=== PATIENT | female | born 1980 | race Caucasian/White ===

== ENCOUNTER 2016-07-27 12:11 | Inpatient (IN) | payer BC ==
[2016-07-27] MEDS ORDERED: LR 1,000 ML IV PRN (12:35)
[2016-07-27] MEDS ORDERED: EPSOM SALT 454 GM TP PRN (12:35)
[2016-07-27] MEDS ORDERED: TERBUTALINE SULFATE 1 MG/ML VIAL IV PRN (12:35)
[2016-07-27] MEDS ORDERED: LIDOCAINE 1% 30 ML SDV SC PRN (12:35)
[2016-07-27] MEDS ORDERED: MINERAL OIL 60 ML OIL TP PRN (12:35)
[2016-07-27] MEDS ORDERED: OXYTOCIN/RINGERS LACTATE 1,000 ML IV PRN (12:35)
[2016-07-27 13:05] LABS: % IMMATURE GRANULYOCYTES 0.4 % (0.0-1.1); ABSOLUTE IMMATURE GRANULOCYTES 0.03 10^3/uL (0.00-0.10); ADD DIFF? NO; ADD MORPH? NO; ADD SCAN? NO; ATYPICAL LYMPHOCYTE FLAG 0 (0-99); FRAGMENT RBC FLAG 0 (0-99); HEMATOCRIT 38.2 % (38.0-47.0); HEMOGLOBIN 13.5 g/dL (12.6-16.3); LEFT SHIFT FLG 0 (0-99); LIPEMIA HEMOLYSIS FLAG 90 (0-99); MEAN CELL HEMOGLOBIN CONCENTR. 35.3 g/dL (32.4-36.7); MEAN CELL VOLUME 87.6 fL (81.5-99.8); MEAN PLATELET VOLUME 9.9 fL (8.7-11.7); PLATELET CLUMPS FLAG 0 (0-99); PLATELET COUNT 287 10^3/uL (150-400); RED BLOOD CELL COUNT 4.36 10^6/uL (4.18-5.33); RED CELL DISTRIBUTION WIDTH 12.3 % (11.5-15.2)
[2016-07-27] MEDS ORDERED: fentaNYL 2MCG/ML/BUP 0.1% RTU 100 ML BAG EP ONE (13:18)
[2016-07-27] MEDS ORDERED: BUPIVACAINE 0.25% 30 ML SDV ONE (13:18)
[2016-07-27] MEDS ORDERED: PHENYLEPHRINE HCL 100 MCG/ML SYR ONE (13:19)
[2016-07-27] MEDS ORDERED: ONDANSETRON 4 MG/2 ML VIAL IVP PRN (14:40)
[2016-07-27] MEDS ORDERED: PHENYLEPHRINE HCL 100 MCG/ML SYR IVP PRN (14:40)
[2016-07-27] MEDS ORDERED: NALOXONE HCL 0.4 MG/ML INJ IVP PRN (14:40)
[2016-07-27] MEDS ORDERED: fentaNYL 2MCG/ML/BUP 0.1% RTU 100 ML EP SCH (15:00)
[2016-07-27] MEDS ORDERED: LR 500 ML IV SCH (15:00)
--- NOTE | 2016-07-27 15:57 | GHP ---
[f rep st] HISTORY AND PHYSICAL DATE OF ADMISSION: 07/27/2016 Admitted to the Obstetric Service. HISTORY UPON ADMISSION: The patient is a 36-year-old, A2, at 38 weeks and 1 day, with an estim ated due date of 08/09/2016, consistent with an 8-week ultrasound, who had spontaneous onset of contr actions in the morning on 07/27. The patient was having strong contractions infrequently, but those have built to be approximately every 4-7 minutes of strong intensity upon admission. She felt they w ere building in frequency since noon. Bag of water was intact upon admission. The patient was not h aving any bleeding. Good movement. Upon first cervical exam on admission, the patient was 5 c m dilated and requested an epidural. This has been placed without any complication, and the patient is comfortable now. care has been with [facility] since 8 weeks' gestation. Care has been uncomplicat ed. The patient had a 20-week ultrasound showing increased estimated weight at the 92nd percentile, and she had a followup ultrasound in 3rd trimester which continued to show the baby was measuring 3 w eeks ahead of schedule. Otherwise, the anatomy on ultrasound was normal. LABORATORY DATA: Include maternal blood type O positive with negative antibody screen. RPR nonreactive. Rubella immune. Hepatitis B surface antigen negative. HIV negative. Verified testin g was all normal. Thyroid function tests were normal. Urinalysis and culture were negative. Pap sm ear negative. Gonorrhea and chlamydia negative. MSAFP negative. 1-hour Glucola was normal. Hemato crit was 37%. GBS culture was negative. FAMILY MEDICAL HISTORY: Patient has a strong family history of cancer, including breast and colon ca ncer. The patient's maternal grandmother, as well as mother and sister, had all been diagnosed with breast cancer, and testing was performed that found a positive BRCA2 gene. The patient was tested an d was also positive and had prophylactic mastectomies in 2011. The patient has a history of ocular m igraines. PAST SURGICAL HISTORY: Bilateral prophylactic mastectomy with right salpingo-oophorectomy in October 19. Breast reconstruction in February 2012. D and Cs for TAB's in 2000 and 2002. PAST OBSTETRIC HISTORY: 2000 TAB. 2002 TAB. September 2013 a viable male at 6 pounds 6 ounces delivere d at 38 weeks via vaginal delivery. Marginal cord insertion but uncomplicated delivery. ALLERGIES: No known drug allergies. CURRENT MEDICATIONS: Only vitamins. SOCIAL HISTORY: The patient is and lives with her and their son. Patient has a hist ory of smoking but discontinued this in 2012. She had a 1/2 alga-uvf-ssv habit. The patient has use d nicotine lozenges 1 g a couple times a day. Patient denies any alcohol or drug use. PHYSICAL EXAMINATION: GENERAL: Upon admission, the patient is a well-developed, well-nourished whit e female in moderate distress with contractions upon arrival. VITAL SIGNS: Blood pressure in the 110s over 60s to 70s. Patient was afebrile. See nursing documen tation for full details. heart tone monitoring reveals baseline varying between the 110s and 1 20s. Category 2 tracing with occasional variable decelerations, however reassuring variability and a ccelerations noted. Contractions every 3-5 minutes. PELVIC: The cervix was dilated 8-9 cm and was 100% effaced. Zero station. Artificial rupture of me mbranes was performed and there was moderate meconium noted. EXTREMITIES: Nontender and minimal edema. ASSESSMENT: 1. Intrauterine at 38+ weeks' gestation with active labor. Meconium noted upon artificial rupture of membranes. Negative GBS culture. Comfortable now with an epidural. 2. History of BRCA2 gene and prophylactic mastectomies. The patient is planning on bottle feeding. PLAN: Expect delivery soon. Will have support due to the meconium. /[id number]/MODL
[2016-07-27] MEDS ORDERED: AMMONIA AROMATIC 1 EACH AMP IH ONE (16:03)
[2016-07-27] MEDS ORDERED: TERBUTALINE SULFATE 1 MG/ML VIAL ONE (16:04)
[2016-07-27] MEDS ORDERED: MISOPROSTOL 200 MCG TAB ONE (16:04)
[2016-07-27] MEDS ORDERED: OXYTOCIN 10 UNIT/ML VIAL ONE (16:05)
[2016-07-27] MEDS ORDERED: LIDOCAINE 1% 30 ML SDV ONE (16:05)
[2016-07-27] MEDS ORDERED: DOCUSATE SODIUM 100 MG CAP PO PRN (16:59)
[2016-07-27] MEDS ORDERED: ACETAMINOPHEN 325 MG TAB PO PRN (16:59)
--- NOTE | 2016-07-27 17:03 | OBPROC ---
- Labor and Delivery Onset of Contractions Date: 07/27/16 Onset of Contractions Time: 12:00 Onset of Contractions Type: Spontaneous Rupture of Membranes Date: 07/27/16 Rupture of Membranes Time: 14:36 Rupture of Membranes Type: Artificial Amniotic Fluid Color: Meconium Stained-Moderate Dilation Complete Time: 15:20 Delivery Type: Spontaneous Placenta Delivery Date: 07/27/16 Placenta Delivery Time: 16:29 Episiotomy/Laceration: 2nd Degree, Midline, Perineal Repair: 3-0, Vicryl EBL: 400 Complications: Nuchal Cord (x1 loose and reduced) - Medications Anesthesia: Epidural - [place] Info Infant A Delivery Date: 07/27/16 Delivery Time: 16:20 Sex of Infant: Female Score (1 Min): 8 Score (5 Min): 9
[2016-07-27] MEDS: IBUPROFEN 600 MG TAB PO PRN ×2 (17:23→23:52)
[2016-07-27] MEDS: HYDROCODONE/APAP 5/325 TAB PO PRN ×2 (18:30→23:55)
[2016-07-28] MEDS: HYDROCODONE/APAP 5/325 TAB PO PRN ×3 (04:25→14:29)
[2016-07-28] MEDS: IBUPROFEN 600 MG TAB PO PRN ×2 (06:01→12:35)
--- NOTE | 2016-07-28 07:21 | SOAPPROG ---
SOAP Progress Note Assessment/Plan: Assessment: ff@u scant rubra lochia pain well managed bottlefeeding well Plan:discharge to home with instructions. discussed pain management, ss infection, pelvic rest, bottlefeeding, depression,rest, exercise, fu, rubra management and expectations, contraception 07/28/16 07:18 Subjective: Doing well. Denies difficulties. PAin well managed. Bottlefeeding well. Objective: Laboratory Results 07/28/16 04:20 - Time Spent With Patient Time Spent With Patient: 15 minbutes - Pending Discharge Pending Discharge Within 24 Hours: Yes Pending Discharge Date: 07/28/16 Pending Discharge Time: 11:00 Physical Exam - Physical Exam General Appearance: WD/WN, alert, no apparent distress Abdomen: other (FF@u scant rubra lochia) Skin: normal color, warm/dry Extremities: normal range of motion, Radha's sign (negative bilaterally/ dtrs1+ bilaterally no clonus) Neuro/Psych: no motor/sensory deficits, alert, normal mood/affect ICD10 Worksheet Patient Problems: Problems Problem Status Diagnosed (spontaneous vaginal delivery) Acute
== END 2016-07-28 18:00 | disposition home or self-care (01) | DRG 775 ==
LOC: FLD 12:11 → OBSVTOIN 12:11 → FOB 07-28 10:47
PROVIDERS: ADMIT Obstetrics & Gynecology; ATTEND Obstetrics & Gynecology
PROC: 10E0XZZ Delivery of Products of Conception, External Approach (ICD-10-PCS; principal; 2016-07-27)
PROC: 0KQM0ZZ Repair Perineum Muscle, Open Approach (ICD-10-PCS; principal; 2016-07-27)
DX: O77.0 Labor and delivery complicated by meconium in amniotic fluid (principal); O69.9XX0 Labor and delivery complicated by cord complication, unspecified, not applicable or unspecified; O70.1 Second degree perineal laceration during delivery; Z3A.38 38 weeks gestation of pregnancy; Z37.0 Single live birth; Z80.3 Family history of malignant neoplasm of breast; Z15.01 Genetic susceptibility to malignant neoplasm of breast; Z90.13 Acquired absence of bilateral breasts and nipples; Z87.891 Personal history of nicotine dependence
CPT/HCPCS: J2370; J2590; J3105

== ENCOUNTER 2016-12-19 05:53 | Observation (INO) | payer OTHER ==
--- NOTE | 2016-12-10 16:58 | GHP ---
[f rep st] PREOP HISTORY AND PHYSICAL DATE OF ADMISSION: 12/19/2016 PLANNED SURGERY: Total laparoscopic hysterectomy with left salpingo-oophorectomy, possible bilatera l salpingectomy if the left fallopian tube is still there. INDICATIONS: BRCA2 positive. HISTORY: The patient is a 36-year-old 4, para 2-0-2-2, who is known to be BRCA2 positive. She is status post bilateral mastectomy. Her family status is now complete. She just had a vaginal delivery in July 2016 of her second child. She has been followed with Oncology. She has a stro ng family history of breast and ovarian cancer, and is noted to be BRCA2 positive and wishes to proc eed with definitive therapy for total abdominal hysterectomy with bilateral salpingo-oophorectomy to decrease her cancer risk. MEDICAL HISTORY: Significant for BRCA2 positive status, history of right ovarian cyst which she had removed, history of migraine headaches, history of depression, history of tobacco use. MEDICATIONS: Lexapro, multivitamin, vitamin D, calcium. SURGICAL HISTORY: Bilateral prophylactic mastectomy, bilateral breast reconstruction, laparoscopic right salpingo-oophorectomy for persistent ovarian cysts, history of voluntary termination of pregna ncy x2. ALLERGIES: No known drug allergies. SOCIAL HISTORY: The patient is a naqd-dk-eehd mom. She is . She lives with her and their 2 children. She has a history of tobacco use, but is not currently smoking. She denies drug use. She does drink alcohol occasionally. FAMILY MEDICAL HISTORY: Significant for multiple family members with breast cancer and BRCA2 positi ve, history of migraines, history of depression and anxiety. OBSTETRIC/GYNECOLOGIC HISTORY: Menarche age 15. Periods every 25 days lasting 5 days. She is a gr avida 4, para 2-0-2-2. In 2010, she had a voluntary termination of which was surgical. I n 2002, she had a voluntary termination of which was surgical. In September 2013, she had a s pontaneous vaginal delivery of a 6 pound, 6 ounce male after 30 hours of labor. In July 21 she had a spontaneous vaginal delivery. That was uncomplicated. The patient denies a ny history of any abnormal Pap smears or sexually transmitted diseases. The patient is having regul ar cycles. REVIEW OF SYSTEMS: A 10-point review of systems is negative. PHYSICAL EXAMINATION: VITAL SIGNS: Are stable. GENERAL APPEARANCE: She is alert and oriented x3. PSYCH: She has an appropriate affect. NECK: Mobile, supple. No thyromegaly noted. HEART: Rat e is regular. LUNGS: Are clear to auscultation bilaterally. ABDOMEN: Soft, nondistended, nontend er. No organomegaly is noted. EXTREMITIES: Reveal no calf tenderness or edema. PELVIC: Reveals a mobile, midposition uterus with no adnexal masses. IMAGING: Recent pelvic ultrasound was unremarkable. Uterus measuring 9 x 4.5 x 5 cm with a left ov bonilla present, which is unremarkable. Absent right ovary is noted. ASSESSMENT: A 36-year-old 2, para 2-0-0-2, who is BRCA2 positive status post bilateral mast ectomy. PLAN: She will proceed with a total laparoscopic hysterectomy with left salpingo-oophorectomies for BRCA2 positive status. The patient has been properly consented and we will proceed. /[id number]/MODL
[2016-12-19] MEDS ORDERED: ceFAZolin 2 GM/DEXTROSE 100 ML IV ONE (06:00)
[2016-12-19] MEDS ORDERED: LR 1,000 ML IV ONE (06:26)
[2016-12-19] MEDS ORDERED: LIDOCAINE 1% 5 ML SDV ID PRN (06:26)
[2016-12-19] MEDS ORDERED: LIDOCAINE 1% 2 ML INJ ONE (06:28)
[2016-12-19] MEDS ORDERED: PROPOFOL 200 MG/20 ML VIAL ONE (06:44)
[2016-12-19] MEDS ORDERED: fentaNYL 100 MCG/2 ML INJ ONE ×3 (06:44→10:37)
[2016-12-19] MEDS ORDERED: BUPIVACAINE 0.5% 30 ML SDV ONE (07:06)
[2016-12-19] MEDS ORDERED: MIDAZOLAM 2 MG/2 ML VIAL ONE (07:14)
[2016-12-19] MEDS ORDERED: ONDANSETRON 4 MG/2 ML VIAL IVP PRN (10:29)
[2016-12-19] MEDS ORDERED: HYDROmorphONE/DILAUDID 1 MG/ML SYR IVP PRN (10:29)
[2016-12-19] MEDS ORDERED: POLYETHYLENE GLYCOL 3350 17 GM PKT PO PRN (10:29)
[2016-12-19] MEDS ORDERED: BISACODYL 10 MG SUPP PR PRN (10:29)
[2016-12-19] MEDS ORDERED: MAGNESIUM HYDROXIDE 30 ML UDCUP PO PRN (10:29)
[2016-12-19] MEDS ORDERED: LACTULOSE 20 GM/30 ML UDCUP PO PRN (10:29)
[2016-12-19] MEDS ORDERED: LR 1,000 ML IV SCH (10:30)
[2016-12-19] MEDS ORDERED: HYDROmorphONE/DILAUDID 1 MG/ML SYR ONE ×2 (10:37→11:30)
--- NOTE | 2016-12-19 10:43 | POSTOPPROG ---
Post Op Note Date of Operation: 12/19/16 Surgeon: Joanna Puente Hide Tanner: jamaal vallecillo Anesthesiologist: kristy Anesthesia: GET(General Endotracheal) Pre-op Diagnosis: BRCA positive Post-op Diagnosis: same Procedure: total laparosopic hysterectomy with LSO, partial vaginal repair of vag cuff Inf/Abcess present in the surg proc area at time of surgery?: No Depth: Organ Space EBL: 50-100 Specimen(s): left ovary and tube, uterus and cervix
[2016-12-19] MEDS ORDERED: DIAZEPAM 10 MG/2 ML SYR ONE (12:00)
[2016-12-19] MEDS ORDERED: DIAZEPAM 10 MG/2 ML SYR IVP ONE (12:15)
--- NOTE | 2016-12-19 12:28 | GOP ---
[f rep st] OPERATIVE REPORT DATE OF OPERATION: 12/19/2016 SURGEON: Joanna Puente DO DYE WEIGHER HELPER: Starla Ahuja M.D. ANESTHESIA: General endotracheal tube. ANESTHESIOLOGIST: Dr. Amador. PREOPERATIVE DIAGNOSIS: 1. BRCA2 positive. 2. Family status complete. 3. Requests cancer reducing surgery. POSTOPERATIVE DIAGNOSIS: 1. BRCA2 positive. 2. Family status complete. 3. Requests cancer reducing surgery. PROCEDURE PERFORMED: 1. Total laparoscopic hysterectomy. 2. Left salpingo-oophorectomy. 3. Partial repair of vaginal cuff vaginally. FINDINGS: On exam under anesthesia, mobile, midposition uterus with no adnexal masses. Laparoscopic findings: Normal-appearing left ovary, tube and uterus. Surgically absent right fallopian tube and ovary. SPECIMENS: Left ovary, tube, uterus and cervix. ESTIMATED BLOOD LOSS: 100 mL. INDICATIONS: The patient is a 36-year-old 4, para 2-0-2-2, who is noted to be BRCA2 positive. She is status post bilateral mastectomy. Her family status is now complete. She just had a vaginal delivery 4 months ago, which this is her second child. She is being followed by Oncology. She has a strong family history of breast and ovarian cancers, and noted to be BRCA2 positive. She wishes to proceed with definitive therapy with a hysterectomy and salpingo-oophorectomy to decrease her risk of ovarian cancer and uterine cancer from subsequent medication therapy. Risks and benefits extensively have been reviewed with the patient. The patient has been properly consented. DESCRIPTION OF PROCEDURE: The patient was taken to the operating room with intravenous fluids in place. She was given 2 g of Ancef intravenously. She was then placed on the operating room table in the dorsal supine position where general anesthesia was obtained. She was then repositioned into the dorsal lithotomy position with the Yellofin stirrups, and prepped and draped in the normal sterile fashion. Exam under anesthesia revealed a mobile midposition uterus with no adnexal masses. A speculum was then placed in the patient's vagina. A single-tooth tenaculum was used to grasp the anterior lip of the cervix and the cervix was sounded to 8 cm. The 8 cm ASUNCION tip with the medium colpotomy ring was then assembled and inserted without difficulty. The balloons were test inflated prior to performing the procedure. The uterus was able to be easily mobilized with the ASUNCION. Attention was then turned to the patient's umbilicus, where a 5 mm skin incision was then made in the umbilicus. The 5 mm laparoscopic was then advanced into the patient's abdomen under direct visualization. The abdomen was then insufflated with CO2 gas until an adequate pneumoperitoneum was achieved. The area underneath the trocar insertion site was found to be unremarkable. The uterus was able to be will mobilize. The patient was then placed in Trendelenburg position. A 5 mm skin incision was then made in the patient's right lower quadrant and a trocar was advanced into the patient's abdomen under direct visualization. A 10 mm skin incision was then made in the patient's left lower quadrant and a 10 mm trocar was advanced into the patient's abdomen under direct visualization. The upper abdomen was explored and was unremarkable. The appendix was visualized, which was unremarkable. The uterus was unremarkable. The left ovary and tube were unremarkable. The right ovary and tube were surgically absent. Bilateral ureters were noted to be peristalsing. The left salpingo-oophorectomy was performed with the LigaSure. The anterior and posterior leaflets of the broad ligament were then clamped and transected with the LigaSure. The uterine arteries were skeletonized and clamped, cauterized and transected. The bladder flap was created anteriorly, dissecting the bladder well off the colpotomy ring which was easily visualized. The right fallopian tube and ovary were noted to be surgically absent. The round ligament was then clamped, cauterized, and transected. The anterior and posterior leaflet of the broad ligament were then clamped, cauterized, and transected. The right uterine artery was then skeletonized, clamped, cauterized , and transected. The bladder flap was created anteriorly. The monopolar was then used to perform the colpotomy. This was done without difficulty. Then, the uterus, the left ovary and tube were then withdrawn through the vagina. They were withdrawn, the specimen was put on the table and a sponge on a glove was then placed into the uterus. The cuff was found to be hemostatic. V-Loc suture was then introduced, and a running V-Loc suture was then used to the midpoint of the uterus, at which time the needle of the V-Loc suture bent. We did trim the remaining suture and withdraw it, and then found out that there was no additional V-Loc suture in the hospital. The decision was made to repair the vaginal cuff vaginally at that time. A long gooseneck speculum was then placed in the vagina. A right angle retractor was used to retract the anterior vaginal wall and a Tamara was used to grasp the angle of the vaginal cuff. The vaginal cuff was closed with 0 Vicryl in a running, locked fashion. Hemostasis was assured. Attention was again turned to the patient's abdomen after gloves and gowns were changed, and the abdomen was reinsufflated with CO2 gas. The vaginal cuff was noted to be well approximated and no incorporation of bowel or other structures were noted. The pelvis was copiously irrigated. The pedicles were evaluated and found to be hemostatic. The vaginal cuff was found to be hemostatic. The 10 mm trocar was then withdrawn. The fascial closure device was inserted and the fascia was closed with 0 Vicryl. The other trocars were removed after CO2 gas was expressed. The skin incisions were closed with 4-0 Monocryl in a subcuticular fashion. Sponge, lap, and needle count was correct x2. The patient was transferred to the recovery room in stable condition. /[id number]/MODL MTDD
[2016-12-19] MEDS ORDERED: NALOXONE HCL 0.4 MG/ML INJ IVP PRN (13:04)
[2016-12-19] MEDS ORDERED: HYDROmorphONE/DILAUDID 6 MG/30 ML PCA IV PRN (13:04)
[2016-12-19] MEDS: KETOROLAC 30 MG/1 ML SDV IVP SCH ×2 (16:51→23:04)
[2016-12-19 18:27] VITALS: RESP 16
--- NOTE | 2016-12-19 18:35 | SOAPPROG ---
SOAP Progress Note Assessment/Plan: Assessment: pod# 0 s/p TLH LSO for BRCA positive Plan: routine post operative care dc dilaudid plumbing service technician dc aiken when ambulating 12/19/16 18:33 Subjective: patient is doing well. pain is well controlled now. patient "is high". tolerating diet. dangled feet at side of bed. discussed post op management plan. will dc plumbing service technician and change to po norco. Objective: Vital Signs Temp Pulse Resp BP Pulse Ox 37.1 C 59 L 16 99/60 L 97 12/19/16 16:30 12/19/16 16:30 12/19/16 16:30 12/19/16 16:30 12/19/16 16:30 12/18/16 12/19/16 12/20/16 05:59 05:59 05:59 Intake Total 2850 Output Total 650 Balance 2200 Physical Exam - Physical Exam General Appearance: WD/WN, alert, no apparent distress Neck: non-tender, full range of motion, supple, normal inspection Respiratory: chest non-tender, lungs clear, normal breath sounds Cardiac/Chest: normal peripheral pulses, regular rate, rhythm Abdomen: normal bowel sounds, non-tender, soft Skin: normal color, warm/dry Extremities: normal range of motion, non-tender, normal inspection, normal capillary refill Neuro/Psych: no motor/sensory deficits, alert, normal mood/affect, oriented x 3 ICD10 Worksheet Patient Problems: Problems Problem Status Onset BRCA gene mutation positive Acute S/P laparoscopic hysterectomy Acute
[2016-12-19] MEDS: SENNOSIDES/DOCUSATE SODIUM TAB PO SCH (20:42)
[2016-12-19] MEDS: HYDROCODONE/APAP 5/325 TAB PO PRN ×2 (20:42→20:46)
[2016-12-19 23:16] VITALS: O2SAT 98
[2016-12-20] MEDS: HYDROCODONE/APAP 5/325 TAB PO PRN ×3 (02:27→11:18)
[2016-12-20] MEDS: KETOROLAC 30 MG/1 ML SDV IVP SCH ×2 (04:55→07:43)
[2016-12-20 05:18] VITALS: PULSE 68
[2016-12-20] MEDS ORDERED: ESCITALOPRAM OXALATE 10 MG TAB PO SCH (09:00)
[2016-12-20] MEDS: SENNOSIDES/DOCUSATE SODIUM TAB PO SCH (09:52)
[2016-12-20] MEDS: IBUPROFEN 600 MG TAB PO SCH ×2 (11:15→13:43)
[2016-12-20 12:44] VITALS: BP 106/68; TEMP 98.9
[2016-12-20] MEDS ORDERED: oxyCODONE IR 5 MG TAB PO PRN (14:12)
--- NOTE | 2016-12-20 14:14 | SOAPPROG ---
SOAP Progress Note Assessment/Plan: Assessment: pod# 1 s/p TLH LSO for BRCA positive Plan: routine post operative care discharge instructions oxy ir for break through pain 12/20/16 14:12 Subjective: patient is doing well overall. pain has been well controlled but having some break through cramping. scant vaginal bleeding. ambulating. passing gas. tolerating diet. ready to go home. Objective: Vital Signs Temp Pulse Resp BP Pulse Ox 37.2 C 68 16 106/68 98 12/20/16 12:43 12/20/16 05:00 12/20/16 05:00 12/20/16 12:43 12/20/16 05:00 12/19/16 12/20/16 12/21/16 05:59 05:59 05:59 Intake Total 3500 Output Total 1750 400 Balance 1750 -400 Physical Exam - Physical Exam General Appearance: WD/WN, alert, no apparent distress Respiratory: chest non-tender, lungs clear, normal breath sounds Cardiac/Chest: normal peripheral pulses, regular rate, rhythm Abdomen: normal bowel sounds, non-tender, soft Skin: normal color, warm/dry, other (incicions covered) Extremities: normal range of motion, non-tender, normal inspection, normal capillary refill Neuro/Psych: no motor/sensory deficits, alert, normal mood/affect, oriented x 3 ICD10 Worksheet Patient Problems: Problems Problem Status Onset BRCA gene mutation positive Acute S/P laparoscopic hysterectomy Acute
== END 2016-12-20 15:00 | disposition home or self-care (01) ==
LOC: F3E 05:53 → FOB 12:30 → UNDODISOB 12-20 13:35
PROVIDERS: ADMIT Obstetrics & Gynecology; ATTEND Obstetrics & Gynecology
PROC: 0UT94ZZ Resection of Uterus, Percutaneous Endoscopic Approach (ICD-10-PCS; principal; 2016-12-19 07:15)
PROC: 0UT14ZZ Resection of Left Ovary, Percutaneous Endoscopic Approach (ICD-10-PCS; principal; 2016-12-19 07:15)
PROC: 0UT64ZZ Resection of Left Fallopian Tube, Percutaneous Endoscopic Approach (ICD-10-PCS; principal; 2016-12-19 07:15)
DX: Z40.02 Encounter for prophylactic removal of ovary(s) (principal); Z40.09 Encounter for prophylactic removal of other organ; Z15.01 Genetic susceptibility to malignant neoplasm of breast; Z90.13 Acquired absence of bilateral breasts and nipples; Z80.3 Family history of malignant neoplasm of breast; Z80.41 Family history of malignant neoplasm of ovary
CPT/HCPCS: 58571; G0378; J0690; J1170; J1885; J2250; J2704; J3010